=== PATIENT | female | born 1995 | race Caucasian/White ===

== ENCOUNTER 2016-09-09 18:42 | Emergency (ER) | payer OTHER ==
[~2016-09-09] VITALS: Ht 162.6 cm; Wt 95.0 kg
[~2016-09-09 18:42] MED LIST: GABA-827 PO; HYDR25CA PO; TRAM50TA2 PO
[2016-09-09] MEDS ORDERED: SODIUM CHLORIDE 0.9% 1,000 ML IV ONE (19:13)
[2016-09-09] MEDS ORDERED: SODIUM CHLORIDE FLUSH 10ML SYR IVF ONE (19:30)
[2016-09-09] MEDS ORDERED: PLEASE ENTER HEIGHT AND WEIGHT MC SCH (19:30)
[2016-09-09] MEDS ORDERED: ASPIRIN 81 MG TABLET CHEW PO ONE (19:30)
[2016-09-09] MEDS ORDERED: ASPIRIN 81 MG TABLET CHEW ONE (20:11)
[2016-09-09 20:17] VITALS: BP 118/70
[2016-09-09 20:29] LABS: ASPARTATE AMINO TRANSFERASE 18 U/L (15-37); BLOOD UREA NITROGEN 16 mg/dL (7-18)
[2016-09-09 20:35] LABS: HEMOGLOBIN 14.8 g/dL (11.7-16.4)
[2016-09-11] MEDS ORDERED: NAPR-874 PO (17:43)
== END 2016-09-09 21:02 | disposition home or self-care (01) ==
LOC: ED 20:20
DX: R07.89 Other chest pain (principal); R07.2 Precordial pain; R07.1 Chest pain on breathing; F41.1 Generalized anxiety disorder; K21.9 Gastro-esophageal reflux disease without esophagitis; F12.10 Cannabis abuse, uncomplicated
CPT/HCPCS: 36415; 71010; 80053; 85025; 93005